=== PATIENT | female | born 1975 | race Two or more races ===

== ENCOUNTER 2016-12-20 08:29 | Emergency (ER) | payer OTHER ==
[~2016-12-20] VITALS: Ht 154.9 cm; Wt 75.3 kg
[~2016-12-20 08:29] MED LIST: ALPR0.25 PO; DOXY100C2 PO; METR500T PO; OMEP40CA37 PO
--- NOTE | 2016-12-20 08:53 | NUR ---
UA COLLECTED AND SENT TO LAB
--- NOTE | 2016-12-20 09:06 | NUR ---
PT IS IN CT
--- NOTE | 2016-12-20 10:37 | NUR ---
Patient discharged to home in stable conditon. Written and verbal after care instructions given. Prescription provided per MD's order. Patient verbalizes understanding of instructions. No further questions or concerns noted prior on leaving the ED.
[2016-12-20 10:39] VITALS: BP 139/90
[2016-12-20 11:35] LABS: *URINE HCG, QUAL NEGATIVE (NEGATIVE)
== END 2016-12-20 10:40 | disposition home or self-care (01) ==
LOC: ER 08:32
DX: H43.399 Other vitreous opacities, unspecified eye (principal); R51 Headache; K21.9 Gastro-esophageal reflux disease without esophagitis; F41.9 Anxiety disorder, unspecified; F10.20 Alcohol dependence, uncomplicated
CPT/HCPCS: 70450; 82962; 84703; 99285; A4663

== ENCOUNTER 2017-02-11 00:19 | Emergency (ER) | payer OTHER ==
[~2017-02-11] VITALS: Ht 154.9 cm; Wt 74.4 kg
[2017-02-11] MEDS ORDERED: PANT20TA2 PO (00:35)
[2017-02-11] MEDS ORDERED: SUCR1TAB31 PO (00:35)
--- NOTE | 2017-02-11 01:55 | NUR ---
Seen 41 Y/F patient resting AOX3, ambulatory,c/o of vomiting 3x's started 1am of Friday 7.23.17, that same day, took her prescribed protonix and carafate (w/ hx of acid reflux), per pt the "weird" feeling started after she eat her home made eggwhite w/ spinach sandwich. Last BM per pt was .
--- NOTE | 2017-02-11 02:45 | NUR ---
Started NS 1st bag 1L out of 2.5L at [facility] g20.
[2017-02-11] MEDS ORDERED: MAG HYDROX/AL HYDROX/SIMETH 30 ML LIQUID UDC PO ONE (03:00)
[2017-02-11] MEDS ORDERED: ONDANSETRON 4 MG/2 ML VIAL IV ONE (03:00)
[2017-02-11] MEDS ORDERED: LIDOCAINE VISCUS 2% 15 ML UDC MM ONE (03:00)
[2017-02-11] MEDS ORDERED: PANTOPRAZOLE SODIUM 40 MG VIAL IV ONE (03:00)
[2017-02-11] MEDS ORDERED: IV NORMAL SALINE 1000 ML BAG IV ONE (03:00)
--- NOTE | 2017-02-11 03:10 | NUR ---
EKG done, MD to read.
--- NOTE | 2017-02-11 03:25 | NUR ---
Administered Zofran 4mg/IVP, Protonix 40mg/IVP, Lidocaine po and Magnesium Chloride/po as ordered.
[2017-02-11] MEDS ORDERED: MAG HYDROX/AL HYDROX/SIMETH 30 ML LIQUID UDC ONE (03:27)
[2017-02-11] MEDS ORDERED: LIDOCAINE VISCUS 2% 15 ML UDC ONE (03:28)
[2017-02-11] MEDS ORDERED: PANTOPRAZOLE SODIUM 40 MG VIAL ONE (03:28)
[2017-02-11] MEDS ORDERED: ONDANSETRON 4 MG/2 ML VIAL ONE (03:28)
[2017-02-11 03:29] LABS: CREATININE 0.8 mg/dL (0.6-1.3); POTASSIUM 3.6 mmol/L (3.5-5.1)
[2017-02-11 03:34] LABS: BASOPHILS % (AUTO) 0.5 % (0.0-2.0); EOSINOPHILS # (AUTO) 0.4 K/uL (0.0-0.7); EOSINOPHILS % (AUTO) 5.5 % (0.0-7.0); HEMATOCRIT 41.1 % (37-47); HEMOGLOBIN 13.8 G/DL (12.0-16.0); LYMPHOCYTES % (AUTO) 29.5 % (20.5-51.5); MEAN CORPUSCULAR HEMOGLOBIN 29.1 UUG (27.0-31.0); MEAN CORPUSCULAR HGB CONC 34 g/dL (32.0-37.0); MEAN CORPUSCULAR VOLUME 86.8 FL (81.0-99.0); MONOCYTES # (AUTO) 0.4 K/UL (0.1-1.30); NEUTROPHILS % (AUTO) 58.5 % (38.5-71.5); PLATELET COUNT (AUTO) 225 K/UL (150-450); RED BLOOD CELL COUNT(AUTO) 4.73 MIL/UL (4.2-5.4); WHITE BLOOD COUNT (AUTO) 6.8 K/UL (4.0-11.2)
[2017-02-11 03:35] LABS: BILIRUBIN,DIRECT 0.2 mg/dL (0.0-0.2); BILIRUBIN,TOTAL 1.1 mg/dL (0.2-1.0); TOTAL PROTEIN, SERUM 7.6 g/dL (6.4-8.2)
--- NOTE | 2017-02-11 05:29 | NUR ---
Completed NS 2.5 L. Accompanied pt to restroom. Pt will be discharge.Discontinued peripheral IV line.
--- NOTE | 2017-02-11 05:51 | NUR ---
Patient discharged to home in stable conditon. Written and verbal after care instructions given including prescriptions. Patient verbalizes understanding of instructions.
[2017-02-11 05:52] VITALS: BP 120/86
--- NOTE | 2017-02-11 09:09 | NUR ---
Pt departed from [facility] at this time but was seen previous shift.
== END 2017-02-11 05:51 | disposition home or self-care (01) ==
LOC: ER 00:22
DX: K21.9 Gastro-esophageal reflux disease without esophagitis (principal)
CPT/HCPCS: 36415; 80048; 80076; 83690; 84484; 85025; 93005; 96361; 96374; 96375; 99285; A4663; C9113; J2405; J7030 ×2; J7040; 70030-TC; J7050

== ENCOUNTER 2017-08-15 22:12 | Emergency (ER) | payer SELFPAY ==
[~2017-08-15] VITALS: Ht 154.9 cm; Wt 77.1 kg
[~2017-08-15 22:12] MED LIST changes: -DOXY100C2 PO; -METR500T PO; -OMEP40CA37 PO; +PANT20TA2 PO; +SUCR1TAB31 PO
[2017-08-15] MEDS ORDERED: IV NORMAL SALINE 1000 ML BAG IV ONE (23:15)
[2017-08-15] MEDS ORDERED: HYDROMORPHONE 1 MG/1 ML DISP.SYRIN IV ONE (23:15)
[2017-08-15] MEDS ORDERED: ONDANSETRON 4 MG/2 ML VIAL IV ONE (23:15)
[2017-08-15 23:30] LABS: BASOPHILS % (AUTO) 0.5 % (0.0-2.0); EOSINOPHILS # (AUTO) 0.4 K/uL (0.0-0.7); EOSINOPHILS % (AUTO) 5.3 % (0.0-7.0); HEMATOCRIT 41.4 % (31.2-41.9); HEMOGLOBIN 14.6 g/dL (10.9-14.3); LYMPHOCYTES # (AUTO) 2.2 K/uL (20.0-40.0); LYMPHOCYTES % (AUTO) 30.4 % (20.5-51.5); MEAN CORPUSCULAR HGB CONC 35 g/dL (32.3-35.6); MEAN CORPUSCULAR VOLUME 85.1 fL (75.5-95.3); MONOCYTES # (AUTO) 0.5 K/uL (2.0-10.0); MONOCYTES % (AUTO) 6.8 % (0.0-11.0); PLATELET COUNT (AUTO) 211 K/uL (179-408); RED BLOOD CELL COUNT(AUTO) 4.87 MIL/uL (3.63-4.92); WHITE BLOOD COUNT (AUTO) 7.1 K/uL (3.8-11.8)
--- NOTE | 2017-08-15 23:35 | NUR ---
Pt ambulated to room with steady gait c/o abd pain n/v and right flank pain. Pt seen by Dr. High. IV established, labs drawn and sent. Pt medicated for discomfort, will monitor for effects of medication. Fluid bolus infusing freely to gravity. Pt resting in position of comfort for self
[2017-08-15 23:43] LABS: BILIRUBIN,DIRECT 0.2 mg/dL (0.0-0.2); BILIRUBIN,TOTAL 0.9 mg/dL (0.2-1.0); CREATININE 0.8 mg/dL (0.6-1.3); POTASSIUM 3.6 mmol/L (3.5-5.1); TOTAL PROTEIN, SERUM 7.3 g/dL (6.4-8.2)
[2017-08-15] MEDS ORDERED: ONDANSETRON 4 MG/2 ML VIAL ONE (23:45)
[2017-08-15] MEDS ORDERED: HYDROMORPHONE 1 MG/1 ML DISP.SYRIN ONE (23:45)
[2017-08-15 23:49] LABS: *BLOOD, URINE 2+ (NEGATIVE); *COLOR,URINE AMBER (YELLOW); *KETONES,URINE 3+ (NEGATIVE); *PROTEIN,URINE 1+ (NEGATIVE); *UROBILINOGEN,URINE 0.2 E.U./dl (NORMAL); LEUKOCYTE ESTERASE ,URINE NEGATIVE (NEGATIVE); NITRITE, URINE NEGATIVE (NEGATIVE); PH,URINE 5.5 (5.0-8.0); UGLUCOSE NEGATIVE (NEGATIVE)
[2017-08-16] LABS: *CLARITY,URINE HAZY (CLEAR)
[2017-08-16 00:01] LABS: *BILIRUBIN,URIN NEGATIVE (NEGATIVE)
[2017-08-16 00:02] LABS: BACTERIA,URINE FEW /HPF (NONE SEEN); MUCUS,URINE MODERATE /LPF (0-FEW); SQUAMOUS EPITHELIAL CELL,UR MODERATE /HPF (NONE SEEN)
[2017-08-16] MEDS ORDERED: IV NORMAL SALINE 1000 ML BAG IV ONE (00:30)
[2017-08-16] MEDS ORDERED: ONDANSETRON IV *ER 4 MG/2 ML VIAL IV ONE (00:30)
--- NOTE | 2017-08-16 00:30 | NUR ---
Pt resting in position of comfort for self. No complaints at this time
[2017-08-16 00:41] LABS: *URINE HCG, QUAL NEGATIVE (NEGATIVE)
[2017-08-16] MEDS ORDERED: CEFTRIAXONE 2 G in IV DEXTROSE 5% 100 ML IV ONE (00:45)
[2017-08-16] MEDS ORDERED: PANTOPRAZOLE SODIUM 40 MG VIAL IV ONE (00:45)
[2017-08-16] MEDS ORDERED: ONDANSETRON 4 MG/2 ML VIAL ONE (01:26)
--- NOTE | 2017-08-16 01:30 | NUR ---
Pt medicated for further vomiting. Second fluid bolus started, infusing freely to gravity.
[2017-08-16] MEDS ORDERED: CEFTRIAXONE 1 G VIAL ONE (01:55)
[2017-08-16] MEDS ORDERED: PANTOPRAZOLE SODIUM 40 MG VIAL ONE (01:55)
--- NOTE | 2017-08-16 03:35 | NUR ---
Pt sts she is feeling better. Pt stable for discharge per MD. IV dc'd, catheter intact. Drsg applied. No problems noted to site. Pt given ACI. Pt verbalized understanding of dc instructions. Pt ambulated out of ER with steady gait to wr to wait for ride home
[2017-08-16 06:21] VITALS: BP 113/81
== END 2017-08-16 03:35 | disposition home or self-care (01) ==
LOC: ER 22:13
DX: N39.0 Urinary tract infection, site not specified (principal); K21.9 Gastro-esophageal reflux disease without esophagitis; Z88.8 Allergy status to other drugs, medicaments and biological substances
CPT/HCPCS: 36415; 83690; 84703; 85025; 87086; A4663; C9113; J0696; J1170; J2405; J3490

== ENCOUNTER 2019-02-11 07:11 | Emergency (ER) | payer BC ==
[~2019-02-11] VITALS: Ht 175.3 cm; Wt 89.8 kg
--- NOTE | 2019-02-11 07:26 | NUR ---
DR ARAUJO AT THE BEDSIDE FOR MSE.
[2019-02-11 07:54] LABS: BASOPHILS # (AUTO) 0.1 K/uL (0.0-8.0); BASOPHILS % (AUTO) 1.3 % (0.0-2.0); CREATININE 0.6 mg/dL (0.6-1.3); EOSINOPHILS # (AUTO) 0.2 K/uL (0.0-0.7); EOSINOPHILS % (AUTO) 3.6 % (0.0-7.0); HEMATOCRIT 39.7 % (31.2-41.9); HEMOGLOBIN 13.5 g/dL (10.9-14.3); LYMPHOCYTES # (AUTO) 1.9 K/uL (20.0-40.0); LYMPHOCYTES % (AUTO) 29.2 % (20.5-51.5); MEAN CORPUSCULAR HEMOGLOBIN 28.7 uug (24.7-32.8); MEAN CORPUSCULAR HGB CONC 34 g/dL (32.3-35.6); MEAN CORPUSCULAR VOLUME 84.7 fL (75.5-95.3); MONOCYTES # (AUTO) 0.4 K/uL (2.0-10.0); MONOCYTES % (AUTO) 6.6 % (0.0-11.0); NEUTROPHILS % (AUTO) 59.3 % (38.5-71.5); PLATELET COUNT (AUTO) 233 K/uL (179-408); POTASSIUM 3.6 mmol/L (3.5-5.1); RED BLOOD CELL COUNT(AUTO) 4.69 MIL/uL (3.63-4.92); WHITE BLOOD COUNT (AUTO) 6.7 K/uL (3.8-11.8)
[2019-02-11 08:00] LABS: BILIRUBIN,DIRECT 0.1 mg/dL (0.0-0.2); BILIRUBIN,TOTAL 0.6 mg/dL (0.2-1.0)
[2019-02-11 08:10] LABS: *URINE HCG, QUAL NEGATIVE (NEGATIVE)
[2019-02-11 11:36] VITALS: BP 123/78
== END 2019-02-11 11:37 | disposition home or self-care (01) ==
LOC: ER 07:11
DX: R07.89 Other chest pain (principal); R10.10 Upper abdominal pain, unspecified; R42 Dizziness and giddiness; K21.9 Gastro-esophageal reflux disease without esophagitis; F41.9 Anxiety disorder, unspecified; Z88.8 Allergy status to other drugs, medicaments and biological substances; Z88.1 Allergy status to other antibiotic agents; Z79.899 Other long term (current) drug therapy
CPT/HCPCS: 36415; 70030-TC; 71045; 76700; 83690; 84703; 85025; 93005; A4663

== ENCOUNTER 2022-05-10 15:59 | Emergency (ER) | payer SELFPAY ==
[~2022-05-10] VITALS: Ht 154.9 cm; Wt 88.9 kg
[2022-05-10 16:54] LABS: HEMATOCRIT 40.7 % (31.2-41.9); MEAN CORPUSCULAR HEMOGLOBIN 29.6 uug (24.7-32.8); MEAN CORPUSCULAR VOLUME 85.5 fL (75.5-95.3); PLATELET COUNT (AUTO) 216 K/uL (179-408)
[2022-05-10 17:15] LABS: CREATININE 0.8 mg/dL (0.6-1.3); POTASSIUM 3.6 mmol/L (3.5-5.1)
--- NOTE | 2022-05-10 17:20 | NUR ---
Pt lying in bed in nad; vss.
[2022-05-10 17:25] LABS: BILIRUBIN,DIRECT 0.1 mg/dL (0.0-0.2); BILIRUBIN,TOTAL 0.4 mg/dL (0.2-1.0); TOTAL PROTEIN, SERUM 7.3 g/dL (6.4-8.2)
[2022-05-10 17:54] LABS: *BILIRUBIN,URIN NEGATIVE (NEGATIVE); *BLOOD, URINE NEGATIVE (NEGATIVE); *CLARITY,URINE CLEAR (CLEAR); *COLOR,URINE YELLOW (YELLOW); *KETONES,URINE TRACE (NEGATIVE); *UROBILINOGEN,URINE 0.2 E.U./dl (NORMAL); LEUKOCYTE ESTERASE ,URINE NEGATIVE (NEGATIVE); NITRITE, URINE NEGATIVE (NEGATIVE); UGLUCOSE NEGATIVE (NEGATIVE)
--- NOTE | 2022-05-10 18:05 | NUR ---
FAUSTO MD AT BEDSIDE WITH BRIANNA ROME FOR PELVIC EXAM.
[2022-05-10 18:23] LABS: *URINE HCG, QUAL NEGATIVE (NEGATIVE)
[2022-05-10 18:32] LABS: BACTERIA,URINE FEW /HPF (NONE SEEN); RBC,URINE 0-3 /HPF (0-3); SQUAMOUS EPITHELIAL CELL,UR MODERATE /HPF (NONE SEEN)
[2022-05-10 18:33] LABS: YEAST,URINE FEW /HPF (NONE SEEN)
--- NOTE | 2022-05-10 19:01 | NUR ---
U/S TECH AT BEDSIDE PERFORMING EXAM; PT TOLERATING WELL
--- NOTE | 2022-05-10 19:16 | NUR ---
SBAR GIVEN TO ABDULKADIR ROME
--- NOTE | 2022-05-10 19:51 | NUR ---
Patient discharged to home in stable condition. Written and verbal after care instructions given. Patient verbalizes understanding of instructions. Stressed follow up or return to ER for worsening s/s.
[2022-05-10 19:52] VITALS: BP 145/88
== END 2022-05-10 19:57 | disposition home or self-care (01) ==
LOC: ER 16:00
DX: R10.2 Pelvic and perineal pain (principal); Z98.890 Other specified postprocedural states; Z82.49 Family history of ischemic heart disease and other diseases of the circulatory system; Z88.3 Allergy status to other anti-infective agents; Z88.0 Allergy status to penicillin; K21.9 Gastro-esophageal reflux disease without esophagitis; F41.9 Anxiety disorder, unspecified; Z79.899 Other long term (current) drug therapy
CPT/HCPCS: 36415; 76856; 84703; 85025; 87086; 87210; A4663

== ENCOUNTER 2024-02-29 11:42 | Emergency (ER) | payer MEDICAID ==
[~2024-02-29] VITALS: Ht 154.9 cm; Wt 85.3 kg
[2024-02-29] MEDS ORDERED: ACETAMINOPHEN/CODEINE 300-30 MG TABLET ONE (12:31)
[2024-02-29] MEDS: ACETAMINOPHEN/CODEINE 300-30 MG TABLET PO ONE (12:33)
[2024-02-29] MEDS ORDERED: IPRATROPIUM BROMIDE 0.5 MG/2.5 ML NEBU ONE (12:38)
[2024-02-29] MEDS ORDERED: ALBUTEROL SULFATE 2.5 MG/ 0.5 ML NEBU ONE (12:38)
[2024-02-29 12:45] VITALS: O2SAT 96
[2024-02-29] MEDS: ALBUTEROL SULFATE 2.5 MG/ 0.5 ML NEBU NEB ONE (12:47)
[2024-02-29] MEDS: IPRATROPIUM BROMIDE 0.5 MG/2.5 ML NEBU NEB ONE (12:47)
[2024-02-29 13:00] VITALS: O2SAT 99
[2024-02-29] MEDS ORDERED: ACET1TAB23 PO (13:41)
[2024-02-29] MEDS ORDERED: ACET12.5 PO (14:17)
[2024-02-29 14:35] VITALS: BP 141/69; TEMP 98.3; O2SAT 98
== END 2024-02-29 14:55 | disposition home or self-care (01) ==
LOC: ER 11:45
DX: U07.1 COVID-19 (principal); K21.9 Gastro-esophageal reflux disease without esophagitis; Z79.1 Long term (current) use of non-steroidal anti-inflammatories (NSAID); Z98.890 Other specified postprocedural states; Z79.899 Other long term (current) drug therapy; Z88.1 Allergy status to other antibiotic agents
CPT/HCPCS: 71045; A4606; A4663; J3590